=== PATIENT | male | born 1950 | race Caucasian/White ===

== ENCOUNTER 2022-02-05 09:21 | Inpatient (IN) | payer MEDICARE, OTHER ==
[2022-01-29 15:30] LABS: BASOPHILS # (AUTO) 0.1 X10'3 (0-0.2); BASOPHILS % (AUTO) 0.8 % (0-1); EOSINOPHILS # (AUTO) 0.2 X10'3 (0-0.9); EOSINOPHILS % (AUTO) 2.2 % (0-6); LYMPHOCYTES # (AUTO) 1.4 X10'3 (1.1-4.8); LYMPHOCYTES % (AUTO) 18.9 % (21-51); MEAN CORPUSCULAR HEMOGLOBIN 30.9 PG (27.0-31.0); MEAN CORPUSCULAR HGB CONC 34.3 g/dL (33.0-36.5); MEAN CORPUSCULAR VOLUME 89.9 FL (78-98); MEAN PLATELET VOLUME 7.4 FL (7.4-10.4); MONOCYTES # (AUTO) 0.6 X10'3 (0-0.9); MONOCYTES % (AUTO) 8.2 % (2-12); NEUTROPHILS % (AUTO) 69.9 % (42-75); PRE OP HEMATOCRIT 39.6 % (42.0-52.0); PRE OP HEMOGLOBIN 13.6 g/dL (14.0-17.9); PRE OP PLATELET COUNT 226 X10'3 (140-440); RED CELL DISTRIBUTION WIDTH 12.9 % (11.5-14.5)
[2022-01-29 15:46] LABS: ALBUMIN 3.8 G/DL (3.4-5.0); ALBUMIN/GLOBULIN RATIO 1.1 (1.1-1.5); ALKALINE PHOSPHATASE 88 IU/L (46-116); BLOOD UREA NITROGEN 15 MG/DL (7-18); BUN/CREATININE RATIO 15.6 (5.4-32.0); CHLORIDE 103 MMOL/L (99-107); CREATININE 0.96 MG/DL (0.60-1.10); PRE OP ALT 21 U/L (30-65); PRE OP ANION GAP 9 (8-16); PRE OP AST 18 U/L (10-37); PRE OP BILIRUB, TOTAL 0.2 MG/DL (0.0-1.0); PRE OP GLUCOSE 103 MG/DL (70-104); PRE OP POTASSIUM 3.9 MMOL/L (3.4-5.1); PRE OP SODIUM 139 MMOL/L (135-145); TOTAL CARBON DIOXIDE 27.5 MMOL/L (24-32); TOTAL PROTEIN 7.4 G/DL (6.4-8.2); eGFR 77 ML/MIN
[~2022-02-05] VITALS: Ht 188 cm; Wt 80.3 kg
[2022-02-05] VITALS (16 sets, daily range): BP systolic 112–133; BP diastolic 7–84
[~2022-02-05 09:21] MED LIST: FLUO40CA PO; GABA-532 PO; IBUP-1986 PO; LISI20TA28 PO; OMEP20CA16 PO; TRAZ-251 PO; ceFAZolin inj. 2,000 MG in dextrose 5%-water 100 ML IV ONE; famotidine 20mg tablet PO ONE; ringers solution, lacted 1,000 ML IV SCH; tranexamic acid 650mg tablet PO ONE; vancomycin/NS 1 GM in NS 250 ML IV ONE
--- NOTE | 2022-02-05 11:11 | NUR ---
patient prepared for surgery, iv started without difficulty, pt up to the bathroom, irregular gait noted, pt holley use of walker or cane. bilateral feet warm to touch, sensation intact, pt is able to move both extreminities. left dorsalis pedis pulses +1 right dorsalis pedis pulse +2 pt states that he used to soap 5 times with the 5th being this morning. he also used the ointment in his nostrils for 5 days. pt did read the packet of information given to him but did not watch the dvd. he states he was afraid and didnt want to know, he might watch it after surgery. pt stated he has had his left knee and hip replaced in the past and knew what to expect. re-educated the patient on using the IS spirometer and fall precautions. I emphasized the importance of watching the dvd.
[2022-02-05] MEDS ORDERED: ROPIVAcaine 0.5% (5mg/ml) 30ml vial ONE ×3 (11:55→13:15)
[2022-02-05] MEDS ORDERED: ketorolac trometh. 30mg/ml inj. ONE (11:55)
[2022-02-05] MEDS ORDERED: cloNIDine hcl/PF 100mcg/ml inj ONE (11:57)
[2022-02-05] MEDS ORDERED: morphine /PF 1mg/ml 10ml inj. ONE (12:44)
[2022-02-05] MEDS ORDERED: midazolam 1 mg/ML 2ml injection ONE (12:45)
[2022-02-05] MEDS ORDERED: dexamethasone sod phosphate 4mg/ml inj. ONE (13:15)
[2022-02-05] MEDS ORDERED: propofol inj 20 ML IV ONE ×3 (13:15)
[2022-02-05] MEDS ORDERED: ePHEDrine 50MG/ML INJ. ONE ×2 (14:22→14:54)
[2022-02-05] MEDS ORDERED: HYDROmorphone/PF 0.2 MG/ML SYRINGE IV PRN ×2 (14:35)
[2022-02-05] MEDS ORDERED: ondansetron/PF 4mg/2ml inj IV PRN ×3 (14:35→15:10)
[2022-02-05] MEDS ORDERED: proCHLORperazine 10 MG/2 ml inj IV PRN (14:35)
[2022-02-05] MEDS ORDERED: diphenhydrAMINE 50 mg/ml inj IV PRN (14:35)
[2022-02-05] MEDS ORDERED: ringers solution, lacted 1,000 ML IV SCH (14:35)
[2022-02-05] MEDS ORDERED: morphine 4 MG/ML inj SYRINge IV PRN (14:35)
[2022-02-05] MEDS ORDERED: naloxone 0.4 mg/ml inj IV PRN ×2 (14:35→15:10)
[2022-02-05] MEDS ORDERED: meperidine/PF 25mg/ml syringe IV PRN (14:35)
[2022-02-05] MEDS ORDERED: acetaminophen 1,000mg/100ml IV 100 ML IV PRN (14:35)
[2022-02-05] MEDS ORDERED: morphine 2 MG/ML inj. syringe IV PRN (14:35)
[2022-02-05] MEDS ORDERED: naloxone 2mg/2ml inj 2 MG in normal saline 500ml IV soln 500 ML IV PRN (14:35)
[2022-02-05] MEDS ORDERED: bisacodyl 10mg suppository rectal RC PRN (15:10)
[2022-02-05] MEDS ORDERED: magnesium hydroxide 30ml (MOM) UD suspension PO PRN (15:10)
[2022-02-05] MEDS ORDERED: HYDROmorphone 1 mg/ml syringe IV PRN (15:10)
[2022-02-05] MEDS ORDERED: HYDROmorphone inj. 0.5 MG/0.5 ML DISP.SYRIN IV PRN (15:10)
[2022-02-05] MEDS ORDERED: potassium cl 20mEq in 1/2 NS 1,000 ML IV SCH (15:10)
[2022-02-05] MEDS ORDERED: acetaminophen 325mg tablet PO PRN (15:10)
[2022-02-05] MEDS ORDERED: diphenhydrAMINE 25mg capsule PO PRN (15:10)
--- NOTE | 2022-02-05 15:22 | NUR ---
Received from OR via , accompanied by Anesthesiologist DR OSBORN and report given by Anesthesiolgist. AWAKENS TO VOICE. VITALS STABLE. DRESSING DI. DASHAWN PAIN. SENSATION AT THE KNEE. العلي WITH CLEAR URINE.
--- NOTE | 2022-02-05 16:13 | NUR ---
received report from sarah arambula
--- NOTE | 2022-02-05 16:22 | NUR ---
Report called to receiving nurse. Transferred via [facility] . Special Issues communicated to receiving nurse.AWAKE AND ORIENTED. VITALS STABLE. DRESSING DI. DASHAWN PAIN. TO ORTHO RM [id number] AT THIS TIME.
[2022-02-05] MEDS: ceFAZolin/D5W- 1GM premix 50 ML IV SCH (16:46)
[2022-02-05] MEDS: diphenhydrAMINE 25mg capsule PO PRN (17:37)
--- NOTE | 2022-02-05 18:10 | NUR ---
gave report to sarah monge
[2022-02-05] MEDS: oxyCODONE IR 5mg (immed. release) tablet PO PRN (19:11)
[2022-02-05] MEDS: acetaminophen 325mg tablet PO SCH (19:13)
[2022-02-05] MEDS ORDERED: vancomycin/NS 1 GM ADD-VANTAGE 250 ML IV SCH (20:00)
[2022-02-05] MEDS: ibuprofen 200mg tablet PO SCH (20:17)
[2022-02-05] MEDS: gabapentin 300mg capsule PO SCH (20:17)
--- NOTE | 2022-02-05 20:32 | NUR ---
Present at bedside during med pass by nursing agency manager. Patient informed nursing that he only takes 50mg of is Trazodone as he feels less groggy in the morning with this dose. Only 50mg administered at this time.
[2022-02-05] MEDS ORDERED: sennosides 8.6mg tablet PO SCH (21:00)
[2022-02-05] MEDS ORDERED: traZODone 50mg tablet PO SCH (21:00)
[2022-02-06] MEDS: diphenhydrAMINE 25mg capsule PO PRN (00:15)
[2022-02-06] MEDS: oxyCODONE IR 5mg (immed. release) tablet PO PRN ×4 (00:16→13:30)
[2022-02-06] MEDS: ceFAZolin/D5W- 1GM premix 50 ML IV SCH (00:17)
[2022-02-06] MEDS: acetaminophen 325mg tablet PO SCH ×3 (01:59→13:30)
[2022-02-06 02:00] VITALS: BP 122/83
[2022-02-06 06:00] VITALS: BP 122/81
[2022-02-06 06:29] LABS: BASOPHILS % (AUTO) 0.2 % (0-1); EOSINOPHILS % (AUTO) 0.2 % (0-6); HEMATOCRIT 33.5 % (42.0-52.0); HEMOGLOBIN 11.5 g/dl (14.0-17.9); LYMPHOCYTES # (AUTO) 0.9 X10'3 (1.1-4.8); LYMPHOCYTES % (AUTO) 8.4 % (21-51); MEAN CORPUSCULAR HEMOGLOBIN 30.6 PG (27.0-31.0); MEAN CORPUSCULAR HGB CONC 34.2 g/dL (33.0-36.5); MEAN CORPUSCULAR VOLUME 89.4 FL (78-98); MEAN PLATELET VOLUME 7.5 FL (7.4-10.4); MONOCYTES # (AUTO) 0.7 X10'3 (0-0.9); MONOCYTES % (AUTO) 6.5 % (2-12); NEUTROPHILS % (AUTO) 84.7 % (42-75); PLATELET COUNT 203 X10'3 (140-440); RED BLOOD COUNT 3.75 X10'6 (4.70-6.10); RED CELL DISTRIBUTION WIDTH 12.9 % (11.5-14.5); WHITE BLOOD COUNT 10.6 X10'3 (4.5-11.0)
[2022-02-06 07:04] LABS: ANION GAP 6 (8-16); CHLORIDE 105 MMOL/L (99-107); POTASSIUM 3.7 MMOL/L (3.5-5.1); SODIUM 138 MMOL/L (135-145); TOTAL CARBON DIOXIDE 27.3 MMOL/L (24-32)
[2022-02-06] MEDS ORDERED: lisinopril 20mg tablet PO SCH (08:00)
[2022-02-06] MEDS ORDERED: pantoprazole 40mg Tablet.DR PO SCH (08:00)
[2022-02-06] MEDS ORDERED: FLUoxetine 20mg capsule PO SCH (08:00)
[2022-02-06] MEDS ORDERED: aspirin 325mg tablet PO SCH (08:30)
[2022-02-06] MEDS: ibuprofen 200mg tablet PO SCH (09:25)
[2022-02-06] MEDS: gabapentin 300mg capsule PO SCH (09:27)
[2022-02-06 10:14] VITALS: BP 117/78
[2022-02-07] MEDS ORDERED: acetaminophen 325mg tablet PO PRN (15:10)
== END 2022-02-06 13:28 | disposition home or self-care (01) | DRG 470 ==
LOC: PAS IN 09:21 → ORTHO 4S 16:15
PROVIDERS: ADMIT Orthopaedic Surgery; ATTEND Orthopaedic Surgery
PROC: 8E0YXBZ Computer Assisted Procedure of Lower Extremity (ICD-10-PCS; 2022-02-05)
PROC: 8E0Y0CZ Robotic Assisted Procedure of Lower Extremity, Open Approach (ICD-10-PCS; 2022-02-05)
PROC: 3E0T3BZ Introduction of Anesthetic Agent into Peripheral Nerves and Plexi, Percutaneous Approach (ICD-10-PCS; 2022-02-05)
PROC: 0SRC0J9 Replacement of Right Knee Joint with Synthetic Substitute, Cemented, Open Approach (ICD-10-PCS; principal; 2022-02-05 12:42)
DX: M17.11 Unilateral primary osteoarthritis, right knee (principal); D62 Acute posthemorrhagic anemia; Z79.899 Other long term (current) drug therapy
CPT/HCPCS: 36415; 80051; 80053; 82948; 85025; 87081; 97110; 97116; 97161; 97530; A4215; A6258; A7000; C1713; C1758; C1776; G0378; J0690; J0735; J1100; J1170; J1885; J2250; J2274; J2704; J2795; J3370; J3480; J3490; J7120; Q0163; U0003; U0005